=== PATIENT | female | born 1955 | race African-American/Black ===

== ENCOUNTER 2018-10-19 01:56 | Inpatient (IN) | payer MEDICAID ==
[~2018-10-19] VITALS: Ht 162.6 cm; Wt 72.6 kg
[~2018-10-19 01:56] MED LIST: HYDR-3326 PO; IBUP-1954 PO; METF-440 PO
--- NOTE | 2018-10-19 02:30 | NUR ---
Pt ambulates to ER from home accompanied by 2 family members w c/o dizziness and nausea x 5 hrs. Pt states she feels as if the room is spinning. Denies chest pain/shortness of breath. Denies GI/ distress. AAOX4. Speech clear. Facial smile symmetric. Responsive to verbal + tactile stimuli. Bilateral hand lighter captain good.
--- NOTE | 2018-10-19 02:57 | NUR ---
Dr. Ranulfo WARNER MD at bedside to evaluate pt.
--- NOTE | 2018-10-19 03:41 | NUR ---
Pt went down to radiology dept for xray & CT scan.
[2018-10-19 03:54] LABS: BASOPHILS # (AUTO) 0.1 K/uL (0.0-8.0); BASOPHILS % (AUTO) 1.1 % (0.0-2.0); EOSINOPHILS # (AUTO) 0.2 K/uL (0.0-0.7); EOSINOPHILS % (AUTO) 2.6 % (0.0-7.0); HEMATOCRIT 40.2 % (31.2-41.9); HEMOGLOBIN 13.3 g/dL (10.9-14.3); LYMPHOCYTES # (AUTO) 2.7 K/uL (20.0-40.0); LYMPHOCYTES % (AUTO) 38.8 % (20.5-51.5); MEAN CORPUSCULAR HEMOGLOBIN 24.9 uug (24.7-32.8); MEAN CORPUSCULAR HGB CONC 33 g/dL (32.3-35.6); MEAN CORPUSCULAR VOLUME 75.4 fL (75.5-95.3); MONOCYTES # (AUTO) 0.5 K/uL (2.0-10.0); MONOCYTES % (AUTO) 6.8 % (0.0-11.0); NEUTROPHILS # (AUTO) 3.5 K/uL (1.8-8.9); NEUTROPHILS % (AUTO) 50.7 % (38.5-71.5); PLATELET COUNT (AUTO) 298 K/uL (179-408); RED BLOOD CELL COUNT(AUTO) 5.33 MIL/uL (3.63-4.92)
[2018-10-19 03:56] LABS: CREATININE 0.7 mg/dL (0.6-1.3); POTASSIUM 4.2 mmol/L (3.5-5.1)
[2018-10-19 04:09] LABS: BILIRUBIN,DIRECT 0.1 mg/dL (0.0-0.2); BILIRUBIN,TOTAL 0.2 mg/dL (0.2-1.0); TOTAL PROTEIN, SERUM 7.8 g/dL (6.4-8.2)
--- NOTE | 2018-10-19 04:23 | NUR ---
Paged [facility] for panel call. [facility]
--- NOTE | 2018-10-19 04:25 | NUR ---
Dr. Ranulfo WARNER MD speaking to Dr. Leon on telephone.
[2018-10-19] MEDS ORDERED: MECLIZINE HCL 25 MG TABLET ONE (04:40)
[2018-10-19] MEDS ORDERED: ASPIRIN 325 MG TABLET ONE (04:40)
[2018-10-19] MEDS ORDERED: HYDROCODONE/APAP 5-325MG TABLET PO PRN (04:45)
[2018-10-19] MEDS ORDERED: ONDANSETRON 4 MG/2 ML VIAL IV PRN (04:45)
[2018-10-19] MEDS ORDERED: MAGNESIUM HYDROXIDE 30 ML LIQUID UDC PO PRN (04:45)
[2018-10-19] MEDS ORDERED: ASPIRIN 325 MG TABLET PO ONE (04:45)
[2018-10-19] MEDS ORDERED: ACETAMINOPHEN 325 MG TABLET PO PRN (04:45)
[2018-10-19] MEDS ORDERED: Z GUARD REMEDY PASTE 57 GM TUBE TOP PRN (04:45)
[2018-10-19] MEDS ORDERED: MECLIZINE HCL 25 MG TABLET PO ONE (04:45)
--- NOTE | 2018-10-19 04:54 | NUR ---
Pt. admitted to Telemetry , under care of Dr. Leon. Diagnosis: Ataxia. Belongs List completed. Report given to charge nurse.
[2018-10-19 05:30] VITALS: BP 154/48
--- NOTE | 2018-10-19 06:44 | NUR ---
TEXTED DR. PISANO FOR MRI APPROVAL.
[2018-10-19 07:04] VITALS: BP 132/52
[2018-10-19] MEDS: METFORMIN HCL 500 MG TABLET PO SCH ×2 (08:39→18:25)
--- NOTE | 2018-10-19 08:40 | NUR ---
MRI ON HOLD FOR NOW PER DR. PISANO, HE WILL LET US KNOW.
[2018-10-19 12:00] VITALS: BP 143/43
[2018-10-19] MEDS ORDERED: MECLIZINE HCL 25 MG TABLET PO PRN (15:45)
[2018-10-19 16:25] VITALS: BP 130/51
[2018-10-19] MEDS ORDERED: DEXTROSE 50% 50 ML DISP.SYRIN IV PRN (18:45)
[2018-10-19] MEDS: glipiZIDE 5 MG TABLET PO SCH ×2 (19:14→19:18)
--- NOTE | 2018-10-19 19:15 | NUR ---
MRI APPROVE,NO PATHOLOGY SUPERVISOR AVAILABLE TONIGHT. IT WILL DONE TOMORROW AM , NURSE IS AWARE.
--- NOTE | 2018-10-19 19:20 | NUR ---
Received patient lying in bed. Asleep but arouse to verbal stimuli. AOx4. In no acute distress. Denies any pain or SOB. Denies any dizziness at this time. Patient sister Ophelia at bedside. IV site on left wrist intact and patent. NSR on tele at 93/min. Safety measure initiated and call garzon within reach.
[2018-10-19 20:20] VITALS: BP 122/50
[2018-10-19] MEDS: ATORVASTATIN 40 MG TABLET PO SCH (20:23)
[2018-10-19] MEDS: BLOOD SUGAR DIAGNOSTIC 1 EACH STRIP VI SCH (20:23)
[2018-10-19] MEDS: INSULIN REGULAR, HUMAN 300 UNIT/3 ML VIAL SQ PRN (20:25)
[2018-10-20 00:41] VITALS: BP 131/68
[2018-10-20 05:17] VITALS: BP 116/52
[2018-10-20 06:18] LABS: BASOPHILS # (AUTO) 0.1 K/uL (0.0-8.0); BASOPHILS % (AUTO) 0.9 % (0.0-2.0); EOSINOPHILS # (AUTO) 0.2 K/uL (0.0-0.7); EOSINOPHILS % (AUTO) 3.1 % (0.0-7.0); HEMATOCRIT 39.8 % (31.2-41.9); HEMOGLOBIN 12.8 g/dL (10.9-14.3); LYMPHOCYTES # (AUTO) 2.9 K/uL (20.0-40.0); LYMPHOCYTES % (AUTO) 43.1 % (20.5-51.5); MEAN CORPUSCULAR HEMOGLOBIN 24.5 uug (24.7-32.8); MEAN CORPUSCULAR HGB CONC 32 g/dL (32.3-35.6); MEAN CORPUSCULAR VOLUME 75.9 fL (75.5-95.3); MONOCYTES # (AUTO) 0.5 K/uL (2.0-10.0); MONOCYTES % (AUTO) 6.8 % (0.0-11.0); NEUTROPHILS # (AUTO) 3.1 K/uL (1.8-8.9); NEUTROPHILS % (AUTO) 46.1 % (38.5-71.5); PLATELET COUNT (AUTO) 308 K/uL (179-408); RED BLOOD CELL COUNT(AUTO) 5.25 MIL/uL (3.63-4.92); WHITE BLOOD COUNT (AUTO) 6.7 K/uL (3.8-11.8)
[2018-10-20] MEDS: BLOOD SUGAR DIAGNOSTIC 1 EACH STRIP VI SCH ×4 (06:45→21:34)
--- NOTE | 2018-10-20 06:47 | NUR ---
AOx4. Denies any pain or SOB. Denies any dizziness. IV site on left wrist intact and patent. NSR on tele at 66/min. Needs assessed and attended to. Safety measure initiated and call garzon within reach.
[2018-10-20 06:51] LABS: CREATININE 0.7 mg/dL (0.6-1.3); MAGNESIUM 1.8 mg/dL (1.8-2.4); PHOSPHOROUS 4.5 mg/dL (2.5-4.9); POTASSIUM 4.4 mmol/L (3.5-5.1)
--- NOTE | 2018-10-20 07:00 | NUR ---
AOx4. Denies any pain or SOB. Denies any dizziness. IV site on left wrist intact and patent. NSR on tele at 66/min. Needs assessed and attended to. Safety measure reinforced.
[2018-10-20] MEDS: METFORMIN HCL 500 MG TABLET PO SCH ×2 (08:00→18:00)
[2018-10-20] MEDS: INSULIN REGULAR, HUMAN 300 UNIT/3 ML VIAL SQ PRN ×3 (08:26→21:36)
[2018-10-20] MEDS: ASPIRIN 81 MG TAB.CHEW PO SCH (09:01)
--- NOTE | 2018-10-20 11:30 | NUR ---
Patient missed acucheck due to going to MRI
[2018-10-20 11:47] LABS: *BILIRUBIN,URIN NEGATIVE (NEGATIVE); *BLOOD, URINE NEGATIVE (NEGATIVE); *CLARITY,URINE CLEAR (CLEAR); *COLOR,URINE YELLOW (YELLOW); *KETONES,URINE NEGATIVE (NEGATIVE); *UROBILINOGEN,URINE 0.2 E.U./dl (NORMAL); LEUKOCYTE ESTERASE ,URINE NEGATIVE (NEGATIVE); NITRITE, URINE NEGATIVE (NEGATIVE); PH,URINE 6.5 (5.0-8.0); UGLUCOSE NEGATIVE (NEGATIVE)
[2018-10-20 11:50] LABS: BACTERIA,URINE FEW /HPF (NONE SEEN); CALCIUM OXALATE CRYSTALS,UR RARE /HPF (NONE SEEN); RBC,URINE NONE SEEN /HPF (0-3); SQUAMOUS EPITHELIAL CELL,UR FEW /HPF (NONE SEEN); WBC,URINE 0-3 /HPF (0-3)
[2018-10-20 12:05] LABS: *AMPHETAMINE, URINE NEGATIVE (NEGATIVE); *BARBITURATE, URINE NEGATIVE (NEGATIVE); *CANNABINOID, URINE NEGATIVE (NEGATIVE); *COCCAINE, URINE NEGATIVE (NEGATIVE); *OPIATE, URINE NEGATIVE (NEGATIVE); *PHENCYCLIDINE SCREEN,URINE NEGATIVE (NEGATIVE)
[2018-10-20 13:00] VITALS: BP 133/64
--- NOTE | 2018-10-20 13:20 | NUR ---
Patient is back from MRI, sister at bed side
[2018-10-20 16:08] VITALS: BP 139/59
[2018-10-20] MEDS: glipiZIDE 5 MG TABLET PO SCH (16:30)
[2018-10-20 19:40] VITALS: BP 146/62
[2018-10-20] MEDS: ATORVASTATIN 40 MG TABLET PO SCH (21:27)
--- NOTE | 2018-10-20 21:59 | NUR ---
RECEIVED PT AWAKE, ALERT AND ORIENTEDX4. PT SHOWS NO SIGNS OF ACUTE DISTRESS. IV INTACT. SAFETY AND COMFORT PROVIDED. WILL CONTINUE TO MONITOR.
[2018-10-21 03:49] VITALS: BP 123/55
--- NOTE | 2018-10-21 06:25 | NUR ---
PT SLEPT THROUGHOUT THE SHIFT. SISTER AT BEDSIDE.PT SHOWS NO SIGNS OF ACUTE DISTRESS. IV INTACT. SAFETY AND COMFORT PROVIDED.ALL NEEDS ARE MET.PRESCRIBED MEDICATION GIVEN AND PT TOLERATED IT WELL. WILL ENDORSE ACCORDINGLY TO INCOMING NURSE FOR CONTINUITY OF CARE.
[2018-10-21] MEDS: BLOOD SUGAR DIAGNOSTIC 1 EACH STRIP VI SCH (06:31)
--- NOTE | 2018-10-21 07:00 | NUR ---
PATIENT IS AAO 4, NO DISTRESS, RESTING IN BED AT THE MOMENT, SISTER AT BED SIDE SAFETY REINFORCED
[2018-10-21] MEDS ORDERED: glipiZIDE 10 MG TABLET PO SCH (07:30)
[2018-10-21] MEDS: ASPIRIN 81 MG TAB.CHEW PO SCH (08:04)
[2018-10-21] MEDS: METFORMIN HCL 500 MG TABLET PO SCH (08:04)
[2018-10-21] MEDS: INSULIN REGULAR, HUMAN 300 UNIT/3 ML VIAL SQ PRN ×2 (08:15→08:25)
[2018-10-21] MEDS ORDERED: ATOR10TA PO (10:29)
[2018-10-21] MEDS ORDERED: GLIP10TA11 PO (10:29)
[2018-10-21] MEDS ORDERED: MECL-102 PO (10:29)
[2018-10-21] MEDS ORDERED: METF-440 PO (10:29)
[2018-10-21] MEDS ORDERED: ASPI81TA31 PO (10:29)
[2018-10-21] MEDS ORDERED: LISI-607 PO (10:40)
[2018-10-21 11:25] VITALS: BP 96/60
--- NOTE | 2018-10-21 11:29 | NUR ---
PATIENT WAS DISCHARGED, TEACHING IS DONE , HARD COPY PAPERS ARE GIVEN STABLE CONDITION WENT DOWNSTAIRS BY WHEEL CHAIR AND GOING HOME WITH HER SISTER
== END 2018-10-21 11:30 | disposition home or self-care (01) | DRG 111 ==
LOC: ER 01:58 → TELE3 04:54 → MEDSURG3 10-20 11:15
PROVIDERS: ADMIT Family Medicine; ATTEND Internal Medicine
DX: H81.10 Benign paroxysmal vertigo, unspecified ear (principal); E11.65 Type 2 diabetes mellitus with hyperglycemia; Z87.891 Personal history of nicotine dependence; Z87.820 Personal history of traumatic brain injury; Z79.84 Long term (current) use of oral hypoglycemic drugs; Z90.710 Acquired absence of both cervix and uterus; E78.5 Hyperlipidemia, unspecified; E66.9 Obesity, unspecified; Z68.27 Body mass index [BMI] 27.0-27.9, adult; R26.9 Unspecified abnormalities of gait and mobility; I70.8 Atherosclerosis of other arteries
CPT/HCPCS: 36415; 70030-TC; 70450; 70551; 71045; 80307; 83735; 84100; 84443; 85025; 85730; 93005; 93880; 97110; 97116; 97530; A4663; G0378; J1815; J8597